=== PATIENT | male | born 1940 | race Caucasian/White ===

== ENCOUNTER → 2023-09-30 12:59 | Outpatient (REF) | payer MEDICARE, OTHER, SELFPAY | LOC: RCS 12:59 | PROVIDERS: ATTENDING PHYSICIAN Internal Medicine Cardiovascular Disease; FAMILY PHYSICIAN Family Medicine | DX: I48.19 Other persistent atrial fibrillation (principal) | CPT/HCPCS: 93306 ==

== ENCOUNTER 2023-10-08 06:27 | Day surgery (SDC) | payer MEDICARE, OTHER, SELFPAY ==
[2023-10-08] VITALS (7 sets, daily range): BP systolic 139–154; BP diastolic 65–94; BMI 26.8
[2023-10-08 07:15] LABS: Hematocrit 46.4 % (39.0-52.0); Hemoglobin 16.6 g/dL (13.0-18.0); Mean Corp Hgb Conc. 35.8 g/dL (33.0-37.0); Mean Corpuscular Hgb 31.8 pg (27.0-31.0); Mean Corpuscular Volume 88.9 fL (80.0-94.0); Mean Platelet Volume 9.5 fL (7.4-10.4); Platelet Count 158 10^3/uL (130-400); Red Blood Cell Count 5.22 10^6/uL (4.70-6.10); Red Cell Dist. Width 12.9 % (11.5-14.5); White Blood Cell Count 6.2 10^3/uL (4.8-10.8)
[2023-10-08] MEDS: LOW STRENGTH ASPIRIN 81 MG PO ×5 (07:33→07:34)
[2023-10-08 08:17] LABS: Blood Urea Nitrogen 14 mg/dl (9-20); Calcium 9.1 mg/dl (8.4-10.2); Carbon Dioxide 25 mmol/L (22-30); Chloride 101 mmol/L (98-107); Estimated Creatinine Clearance 65 ml/min; Glucose 100 mg/dl (70-99); Potassium 4.3 mmol/L (3.5-5.1); Sodium 136 mmol/L (135-145); eGFR > 60.00
--- NOTE | 2023-10-08 09:12 | ITS.CL.CATH ---
[facility]ider - Catheterization
Cardiac Catheterization
Procedure Report:
LEFT HEART CATHETERIZATION
Date of Procedure: October 08, 2023
Referring: Dr. Aaron Jacob
PROCEDURES:
1. Left heart catheterization with coronary and single-plane left ventriculography
INDICATION: This is a physically active 83-year-old gentleman who has a past medical history notable for atrial fibrillation and progressive aortic stenosis. He has a history of left carotid stenosis treated with carotid endarterectomy in June
2020. He walks the [employer] walking path and on occasion notices some vague chest heaviness and shortness of breath when climbing up the steepest hill in the park but he continues to go to the gym regularly and states that his symptoms have
been stable for quite some time. His most recent echocardiogram was notable for new LV dysfunction with mild global hypokinesis and estimated ejection fraction of 45%. There is mild mitral regurgitation. The aortic valve is thickened, calcified,
and leaflet mobility is restricted with a mean aortic valve gradient for 30 mmHg. Given symptoms and new LV dysfunction he is now referred for coronary angiography.
ACCESS: Right radial artery, 6 Gabonese sheath
HEMODYNAMICS : (mmHg)
AO (s/d) : 108/68
LV (s/d) : 146/10
LVEDP : 16
AORTIC VALVE:
Mean Gradient: 35 mmHg
CORONARY FINDINGS
DOMINANCE: Left
LEFT MAIN: Normal
LEFT ANTERIOR DESCENDING: The LAD arises normally from the left main and runs in the anterior interventricular groove. The LAD is moderately calcified with luminal stenosis of 40-50% noted in the mid LAD and 60% in the distal LAD as well as 80% as
the LAD wraps around the apex.
CIRCUMFLEX: Large caliber dominant vessel. OM1 small-medium. OM2 moderate caliber vessel. The circumflex continues in the AV groove supplying the PDA. The distal circumflex has a 70% stenosis extending to the proximal PDA which has a 70% mid
stenosis.
RIGHT CORONARY ARTERY: Medium caliber nondominant vessel that supplies a small posterolateral branch
VENTRICULOGRAPHY: Left ventriculography is performed in an ELIZALDE projection. The digital single-plane left ventricular ejection fraction is estimated at 40-45% with moderate anterolateral hypokinesis and posterobasal hypokinesis.
RADIATION SUMMARY: Fluoro Time (min): 3.7, Dose (mGy): 434.1, DAP (Gy.cm2) : 39.3
Closure Device: TR band
CONCLUSIONS
1. Severe symptomatic aortic stenosis with mean AV gradient of 35 mmHg
2. Moderate coronary disease as described above
RECOMMENDATIONS
1. Will discuss at upcoming Valve Clinic meeting
Copy to: Dr. Aaron Jacob
[2023-10-08] MEDS: NSS 1000 IV (10:00)
--- NOTE | 2023-10-08 10:27 | CONSULT.STRU ---
Addendum entered and electronically signed by RUBIN Justin 10/29/23 09:28:
Patient reviewed by the Heart Team at the shared decision making meeting. TAVR is felt to be the appropriate treatment for his severe, symptomatic aortic stenosis utilizing a 29mm S3 via right transfemoral access. Will call to schedule patient for
his procedure.
Original Note:
Consultation
-
Date/Time Consultation Requested: 10/08/2023 0900
Date/Time Consultation Performed: 10/08/2023 1030
Requesting Provider: Yared Winkler MD
Performing Provider: RUBIN Khan
Reason for Consultation: /TAVR
Patient History
Physicians
Family Physician: Mack Cox MD
Outpatient Services Executive: Aaron Jacob MD
Primary Services Executive: Melyssa Gallardo
History of Present Illness
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 Patient states he still enjoys walking [facility] in [place] several times per week and he is an avid
golfer. Recently, he states he is more fatigued, has some increased COLLAZO, and exertional CP. He also c/o intermittent dizziness over the last several weeks. His echocardiogram from 09/30/2023 is notable for an EF of 45%, AV 50/30, SHADI 0.5, DI 0.1, mild
AI, mild MR, mild TR, PAP 30-35mmHg. Discussed the pathophysiology of aortic stenosis and the treatment options including SAVR and TAVR. Explained the evaluation process comprising of CT scan, CT surgical consult, dental clearance, and a heart team
discussion. TAVR booklet, prescriptions, appointments, and contact information given to patient. Allowed for and answered questions at bedside.
Past Medical History
Past Medical History: Asthma, Atrial Fib (persistent afib), GERD, HTN, Hypercholesterolemia, Valvular Disease (aortic stenosis) and Other
diverticulosis, spondylolysis of cervical region, IBD, pancreatitis, AAA, malignant melanoma, carotid stenosis, RBBB, bradycardia, Tinnitis
Past Surgical History
Past Surgical History: Other ((L) carotid endarterectomy, inguinal hernia repair, cataracts)
Dental History
UTD with dental care with [facility]. Will fax dental clearance form.
Family History
Mother: Cause of (multiple myeloma)
Father: Cause of (CAD)
Social History
Alcohol: Occasional
Drug: None
Tobacco: Former Smoker
Personal:
Living: With Spouse
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
Allergies
Allergy/AdvReac Type Severity Reaction Status Date / Time
atorvastatin Allergy Unknown caused Verified 10/08/23 06:37
pancreatitis
egg [Egg] Allergy Unknown Hives Verified 10/08/23 06:37
milk [Milk] Allergy Unknown Hives Verified 10/08/23 06:37
chocolate Allergy Unknown Hives Uncoded 10/08/23 06:37
grass,pollen Allergy Unknown sneezing Uncoded 10/08/23 06:37
Wheat Allergy Unknown Hives Uncoded 10/08/23 06:37
Home Medications
Medication Instructions Recorded Confirmed Type
multivitamin with folic acid 400 1 tab PO DAILY Supplement 06/30/09 10/08/23 History
mcg tablet (Tab-A-Kira)
omeprazole 20 mg capsule,delayed 20 mg PO DAILY Gastrointestinal 12/24/15 10/08/23 History
release issue
metoprolol succinate 25 mg 50 mg PO QPM Blood pressure 07/15/21 10/08/23 History
tablet,extended release 24 hr
rivaroxaban 20 mg tablet (Xarelto) 10 mg PO QPM Blood clot 07/15/21 10/08/23 History
prevention/tx
B-complex with vitamin C 1 cap PO DAILY 10/08/23 10/08/23 History
aspirin 81 mg capsule 81 mg PO DAILY 10/08/23 10/08/23 History
cholecalciferol (vitamin D3) 50 50 mcg PO DAILY 10/08/23 10/08/23 History
mcg (2,000 unit) capsule (Vitamin
D3)
coQ10 (ubiquinol) 100 mg capsule 50 mg PO DAILY 10/08/23 10/08/23 History
ezetimibe 10 mg tablet 10 mg PO DAILY 10/08/23 10/08/23 History
red yeast rice 600 mg tablet 1,200 mg PO DAILY 10/08/23 10/08/23 History
STS%
STS %: 3.48
Review of Systems
-
History Source: Patient
General: Reports No Symptoms
HEENT: Reports No Symptoms
Respiratory: Reports COLLAZO
Cardiac: Reports Chest Pain (with exertion)
Abdomen/GI: Reports No Symptoms
: Reports No Symptoms
Skin: Reports No Symptoms
Neurological: Reports Dizzy (hx of tinnitus)
Vascular: Reports No Symptoms
Physical Exam
Vital Signs
Temp 98 F 10/08/23 07:13
Temp route: Oral 10/08/23 07:13
Pulse 98 10/08/23 09:19
Resp Rate 14 10/08/23 09:19
Blood pressure 144/90 10/08/23 09:19
Blood pressure extremity used: Left upper arm 10/08/23 09:19
Position: Sitting 10/08/23 09:19
SaO2 98 10/08/23 09:19
Oxygen Mode of Delivery Room air 10/08/23 07:13
Can the patient verbally communicate their pain? Yes 10/08/23 09:19
Actual Weight 87.09 kg 10/08/23 07:13
Body Mass Index (BMI) 26.8 10/08/23 07:13
Labs
10/08/23 07:05
10/08/23 07:31
Diagnostic Studies
CUS 03/02/2023:
IMPRESSION:
1. Right carotid: Calcified plaque carotid bulb, proximal internal and external carotid arteries. Velocity profile consistent with less than 50% stenosis.
2. Left carotid: Widely patent left carotid endarterectomy site with no recurrent or residual stenosis. Chronic left external carotid artery proximal occlusion unchanged.
3. Antegrade flow bilateral vertebral arteries.
Echocardiogram 09/30/2023:
CONCLUSIONS
�Mildly reduced left ventricular systolic function.
�Left ventricular ejection fraction is 45%.
�Global hypokinesis.
�Mild concentric left ventricular hypertrophy.
�Indexed LA volume is moderately abnormal (42-48 mL/m2).
�Moderately dilated right atrium.
�Mild mitral regurgitation.
�Severe aortic stenosis.
�Peak/mean gradients are 50/30mmHg.
�The valve area by continuity equation is 0.5cm, using a LVOT of 2.1cm.
�Dimensionless index is 0.1.
�Tricuspid valve opens normally.
�Estimated pulmonary artery pressure of 30-35 mmHg.
�Since 2020 echo is now severe and EF% is slightly diminished.
Exam
General: Well Developed
HEENT: Normocephalic and Moist Mucous Membranes
Respiratory: Clear
Cardiac: Murmur (II/ CRISTINA)
GI: Non Tender
Rectal: Deferred by Provider
Skin: Warm and Dry
Neuro: Awake, Alert, Oriented and AO x 3
Psych: Calm
Assessment / Plan
-
Aortic Stenosis
Continue TAVR evaluation
Trend creatinine after contrast
TAVR CT scan ()
CT surgical consult (MPT 10/19)
Frailty testing and KCCQ 12 at consult
Will hold Xarelto for TAVR
Dental clearance (will fax form)
Heart team discussion.
Data Reviewed
-
Clothespin Machine Operator: Discussed with Physician (non-critical CAD)
Echo: Report Reviewed by me
Ultrasound: Report Reviewed by me (CUS)
Labs: Labs Reviewed by me
Old Records: Reviewed (Dr. Jacob's office visit)
Total Time Spent with Patient (in minutes): 45
--- NOTE | 2023-10-08 12:29 | SUR.OPER ---
Pt for tavr f/u. Stephanie Bernardo spent time reviewing his questions.Pt recovered well with any chest pain. Rt radial site soft not bleeding. Radial site no bleeding, IV d/osito intact, Understands all f/u care
== END 2023-10-08 12:32 | disposition home or self-care (01) ==
LOC: CATH 06:27
PROVIDERS: Internal Medicine Interventional Cardiology; ATTENDING PHYSICIAN Internal Medicine Cardiovascular Disease; FAMILY PHYSICIAN Family Medicine
DX: I25.10 Atherosclerotic heart disease of native coronary artery without angina pectoris (principal); I48.19 Other persistent atrial fibrillation; I08.0 Rheumatic disorders of both mitral and aortic valves; R07.89 Other chest pain; R06.02 Shortness of breath; I10 Essential (primary) hypertension; E78.00 Pure hypercholesterolemia, unspecified; J45.909 Unspecified asthma, uncomplicated; K21.9 Gastro-esophageal reflux disease without esophagitis; K58.9 Irritable bowel syndrome, unspecified; Z85.820 Personal history of malignant melanoma of skin; Z87.891 Personal history of nicotine dependence; Z82.49 Family history of ischemic heart disease and other diseases of the circulatory system; Z79.82 Long term (current) use of aspirin
CPT/HCPCS: 80048; 85027; 93458; C1894; Q9967

== ENCOUNTER → 2023-10-12 09:06 | Outpatient (REF) | payer MEDICARE, OTHER, SELFPAY ==
[2023-10-12 10:34] LABS: Blood Urea Nitrogen 16 mg/dl (9-20); Calcium 9.8 mg/dl (8.4-10.2); Carbon Dioxide 28 mmol/L (22-30); Chloride 100 mmol/L (98-107); Glucose 102 mg/dl (70-99); Potassium 4.9 mmol/L (3.5-5.1); Sodium 138 mmol/L (135-145); eGFR > 60.00
== END ==
LOC: REG 09:06
PROVIDERS: ATTENDING PHYSICIAN Nurse Practitioner Acute Care; FAMILY PHYSICIAN Family Medicine; REFERRING PHYSICIAN Internal Medicine Cardiovascular Disease
DX: I35.0 Nonrheumatic aortic (valve) stenosis (principal)
CPT/HCPCS: 36415; 80048

== ENCOUNTER → 2023-10-21 09:40 | Outpatient (REF) | payer MEDICARE, OTHER, SELFPAY | LOC: RAD 09:40 | PROVIDERS: ATTENDING PHYSICIAN Nurse Practitioner Acute Care; FAMILY PHYSICIAN Family Medicine | DX: I35.0 Nonrheumatic aortic (valve) stenosis (principal) | CPT/HCPCS: 74174; 75572; Q9967 ==

== ENCOUNTER 2023-11-18 07:28 | Inpatient (IN) | payer MEDICARE, OTHER, SELFPAY ==
--- NOTE | 2023-11-10 09:50 | HPS.HSE ---
Family Physician
-
Family Physician: Mack Cox
Chief Complaint
-
Fatigue, COLLAZO, intermittent dizziness
History of Present Illness
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 Patient states he still enjoys walking [place] in [place] several times per week and he is an avid
golfer. Recently, he states he is more fatigued and has some increased COLLAZO. He also c/o intermittent dizziness over the last several weeks. His echocardiogram from 09/30/2023 is notable for an EF of 45%, AV 50/30, SHADI 0.5, DI 0.1, mild AI, mild MR,
mild TR, PAP 30-35mmHg. He has been evaluated by the structural heart team and recommended for TAVR. TF TAVR scheduled for 11/18/2023 utilizing a 29mm S3 via right transfemoral access.
Patient assessed in preadmission testing and medication list confirmed. Last dose of Xarelto will be Wednesday (11/14) and will continue aspirin including the morning of TAVR (11/17). Xarelto will be resumed post TAVR. Mr. Olivo will arrive to the
[facility] atrium at 0530. Reviewed the risks of the procedure as discussed with Dr. Olson in consult including stroke, vascular injury, and ppm. Informed patient he will get a phone call from the heart team on Wednesday (11/16) before his TAVR. Allowed
for and answered questions.
Medical History
Past Medical History
Past Medical History: Reports Arrhythmia (PAF--Xarelto), Asthma, GERD, HTN, Hypercholesterolemia, Valvular Disease (aortic stenosis) and Other (diverticulosis, IBS, pancreatitis, AAA, carotid stenosis, spondylolysis of cervical region, statin
intolerance, malignant melanoma, former smoker, RBBB, mortons metatarsaligia)
Past Surgical History: Reports Orthopedic (Bone spur and hammer toe) and Other (inguinal hernia repair, CEA (07/13))
Social History
Tobacco: Former Smoker
Alcohol: Occasional
Drug: None
Personal:
Living: With Family
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
Family History
Family History: CAD (father) and Cancer (mother-multiple myeloma)
Allergies / Home Medications
Allergies reflects when Allergies were last updated in [facility].
Hfjzkgp-efh-brf Reductase Inhibitors: pancreatitis (06/16/2013) - Allergy
Home Medications with original date entered in [facility]
Aspirin 81(Aspirin) 81 MG Tablet Chewable 1 tablet Orally Once a day
Ezetimibe 10 MG Tablet 1 tablet Orally Once a day
Metoprolol Succinate ER 25 MG Tablet Extended Release 24 Hour 1 tablet Orally Once a day
Multivitamin(Multiple Vitamin) - Tablet 1 tablet Orally Once a day
Omeprazole 20 MG Capsule 1 capsule 30 minutes before morning meal Orally Once a day
Red Yeast Rice 600 MG Capsule as directed Orally Twice a Day
Vitamin B12
Vitamin D
Xarelto(Rivaroxaban) 20 MG Tablet 1 tablet with food Orally Once a day
Allergy/Medication List:
Kglgqad-cjp-ogt Reductase Inhibitors: pancreatitis (06/16/2013)
Review of Systems
-
History Source: Patient
Constitutional: Reports Fatigue
EENT: Reports Runny Nose
Respiratory: Reports Cough and Trouble Breathing (COLLAZO)
Cardiac: Reports No Symptoms
Abdomen/GI: Reports No Symptoms
: Reports No Symptoms
Skin: Reports No Symptoms
Neurological: Reports Dizzy (intermittent positional dizziness)
Psych: Reports No Symptoms
Physical Exam
Physical Exam
General: Well Developed and Well Nourished
HEENT: Moist mucous membranes
Respiratory: Clear
Cardiac: Irregular Rhythm and Murmur (II/ CRISTINA)
Breast: Deferred by me
GI: Soft and Non Tender
Rectal: Deferred by Provider
Genito-urinary: Deferred by me
Musculoskeletal: No Edema
Skin: Warm and Dry
Neuro: Awake, Alert, Oriented and AO x 3
Psych: Calm
Data Reviewed
-
Diagnostic Radiology: Report Reviewed by me
CT Scan: Report Reviewed by me and Discussed with Physician (TAVR CT scan reviewed with the structural heart team)
Medical Tests (Nuc Med, Echo, EKG etc): Report Reviewed by me and Discussed with Physician (Reviewed echocardiogram and cardiac catheterization with the structural heart team)
Lab Data: Labs Reviewed by me
Old Records: Reviewed (Office note, echo, cath, CT scan)
Impression/Plan
-
IMPRESSION/PLAN:
Aortic Stenosis--TF TAVR planned for 11/18/2023 utilizing a 29 mm S3 via right transfemoral access.
Last dose Xarelto Wednesday (11/14) Continue aspirin. Resume Xarelto s/p TAVR.
POD#1/#30 echocardiogram
cardiac rehab consult.
RBBB--EP notified.
Labs
-
Labs:
WBC 7.7 10^3/uL (4.8-10.8) 11/11/23 08:40
RBC 5.07 10^6/uL (4.70-6.10) 11/11/23 08:40
Hgb 15.9 g/dL (13.0-18.0) 11/11/23 08:40
Hct 46.6 % (39.0-52.0) 11/11/23 08:40
Plt Count 171 10^3/uL (130-400) 11/11/23 08:40
Sodium 135 mmol/L (135-145) 11/11/23 08:40
Potassium 4.5 mmol/L (3.5-5.1) 11/11/23 08:40
Chloride 102 mmol/L (98-107) 11/11/23 08:40
Carbon Dioxide 25 mmol/L (22-30) 11/11/23 08:40
BUN 16 mg/dl (9-20) 11/11/23 08:40
Creatinine 0.9 mg/dL (0.7-1.3) 11/11/23 08:40
eGFR > 60.00 11/11/23 08:40
Glucose 90 mg/dl (70-99) 11/11/23 08:40
Calcium 9.4 mg/dl (8.4-10.2) 11/11/23 08:40
Opd-O-Pmkvsowvyfy Pept 3570 pg/ml 11/11/23 08:40
Albumin 4.8 g/dl (3.5-5.0) 11/11/23 08:40
[2023-11-11 08:28] VITALS: BMI 27.5
[2023-11-11 09:02] LABS: % Basophils 0.4 % (0-2); % Eosinophils 2.5 % (0-6); % Immature Granulocytes 0.4 % (0-0.5); % Monocytes 8.8 % (1.7-9.3); % Neutrophils 58.9 % (42.2-75.2); Absolute Eosinophils 0.2 10^3/uL (0-0.7); Absolute Lymphocytes 2.2 10^3/uL (1.2-3.4); Absolute Monocytes 0.7 10^3/uL (0.1-0.6); Absolute Neutrophils 4.6 10^3/uL (1.4-6.5); Hematocrit 46.6 % (39.0-52.0); Hemoglobin 15.9 g/dL (13.0-18.0); Mean Corp Hgb Conc. 34.1 g/dL (33.0-37.0); Mean Corpuscular Hgb 31.4 pg (27.0-31.0); Mean Corpuscular Volume 91.9 fL (80.0-94.0); Mean Platelet Volume 9.2 fL (7.4-10.4); Nucleated Red Blood Cells % 0 % (-); Platelet Count 171 10^3/uL (130-400); Red Blood Cell Count 5.07 10^6/uL (4.70-6.10); Red Cell Dist. Width 13.2 % (11.5-14.5); White Blood Cell Count 7.7 10^3/uL (4.8-10.8)
[2023-11-11 09:06] LABS: INR 1.41; PT 17.3 Sec (11.4-14.6)
[2023-11-11 09:07] LABS: APTT 37.4 Sec (23.4-35.0)
[2023-11-11 09:34] LABS: Urine Albumin Negative (Neg - Trace); Urine Bilirubin Negative (Negative); Urine Character Clear (Clear); Urine Color Yellow; Urine Glucose Negative (Negative); Urine Ketone Negative (Negative); Urine Leukocyte Negative (Negative); Urine Nitrite Negative (Negative); Urine Occult Blood Negative (Negative); Urine Urobilinogen Negative (Neg - 1+); Urine pH 6.5 (5.0-9.0)
[2023-11-11 09:36] LABS: NT-proBNP 3570 pg/ml
[2023-11-11 09:57] LABS: ALT (SGPT) 28 U/L (0-50); AST (SGOT) 34 U/L (17-59); Albumin 4.8 g/dl (3.5-5.0); Alkaline Phosphatase 58 U/L (38-126); Blood Urea Nitrogen 16 mg/dl (9-20); Calcium 9.4 mg/dl (8.4-10.2); Carbon Dioxide 25 mmol/L (22-30); Chloride 102 mmol/L (98-107); Direct Bilirubin 0.3 mg/dl (0.0-0.4); Estimated Creatinine Clearance 63 ml/min; Glucose 90 mg/dl (70-99); Potassium 4.5 mmol/L (3.5-5.1); Sodium 135 mmol/L (135-145); Total Bilirubin 1.2 mg/dl (0.2-1.3); Total Protein 7.8 g/dl (6.3-8.2); eGFR > 60.00
--- NOTE | 2023-11-11 10:15 | CM ---
Met with Mr. Olivo in [facility]. He states prior to admission he resides with his spouse in a two story home without any steps to enter. He states he has a full flight of steps to get to bedroom/full bathroom. He state he has a powder room on the
first floor. He state prior to admission he was independent with ambulation and adls. He states he does not have any DME in the home. He states he has a prescription plan and uses [facility]. He states his spouse will be home to assist in his
care if needed. The discharge plan is to return home with his spouse and a home visit by the Cardiothoracic Transitional Care Nurse when medically stable.
We reviewed pre-op and post-op routines. We reviewed the shower instructions. He has the soap, written instructions and the TAVR Educational Booklet. We also reviewed restrictions, driving and lifting restrictions. We discussed a home visit by
the Cardiothoracic Transitional Care Nurse. He is agreeable to a home visit. The plan is for TAVR on October.
[2023-11-11 11:30] LABS: Glycohemoglobin (HgbA1c) 6.3 % (4.0-5.6)
[2023-11-18] VITALS (28 sets, daily range): BP systolic 89–134; BP diastolic 54–103; BMI 27.4
--- NOTE | 2023-11-18 08:29 | CM ---
Reviewed chart. Mr. Olvio is in the operating room today. Prior to admission he resides with his spouse in a two story home without any steps to enter. He has a full flight of steps to get to bedroom/bathroom. He has a powder room on the first
floor. Prior to admission he was independent with ambualtion and adls. He does not have any DME in the home. He has a prescription plan and uses the [facility]. His spouse will be home to assist in his care if needed. Medical work-up in
progress. The discharge plan is to return home with his spouse and a home visit by the Cardiothoracic Transitional Care Nurse when medically stable.
--- NOTE | 2023-11-18 12:10 | W.CVOR.SURPR ---
CVOR Surgeon Immed Pre Op
-
I have examined this patient prior to performance of the scheduled procedure.
The patient's condition is unchanged from the time of the dictated/written History and
Physical and the patient is able to undergo the scheduled procedure.
TF TAVR
Full Rescue
[2023-11-18 14:51] LABS: ACT-LR - POC 371 Seconds (116-155)
--- NOTE | 2023-11-18 14:59 | W.PN.CT.SURG ---
CT Surgery Operative Note
-
OPERATIVE REPORT
Preoperative Diagnosis: Severe aortic valve stenosis, symptomatic
Postoperative Diagnosis: Same
Procedure(s) Performed: Right trans femoral TAVR with a 26mm + 1cc Franco TAVR valve
Date of Procedure: 11/18/23
Comorbidities:
1. Severe aortic stenosis, Symptomatic
2. H/o of TIA
3. Carotid Stenosis
Cardiac Surgeon: Luis Alberto Casper MD, MS
Cryptologic Technician: Yared Winkler MD
Anesthesia: Conscious Sedation and Local Analgesia
EBL: 150cc
Products: none
Implant: 26mm Franco Anna Ultra TAVR Valve, SN: [id number]
Indication(s) for Procedures: 83-year-old male with symptomatic severe aortic stenosis. CT-TAVR protocol revealed acceptable anatomy for TAVR access and implantation.
Start time: 1403hrs
Deployment time: 1432hrs
End time: 1453hrs
Radiation Dose (mGy): 338.96
DAP (cm2.Gy): 41.3337
Fluoroscopy time (minutes): 15.0
Contrast volume (ml): 94
TAVR gradient (mmHg): 3mmHg
Heparin Dose: 7000units
Protamine Dose: 40mg
Final Valve Positionin/20
LVEDP (mmHg): 20
Findings: Preoperative LVEF was 45% and was 50% following TAVR without inotropic support. Function was overall normal without regional wall motion abnormalities or dyskinesia. The aortic valve was well seated without detectable PVL and mean gradient
across the new valve was 2-3mmHg. The patient started in atrial fibrillation and remained atrial lesion post pacing run. There was successful placement of 26 mm +1 TAVR valve without acute complications.
Access:
1. Device -right common femoral artery, perclose x 2
2. Pigtail -right radial
3. Transvenous Pacer -left common femoral vein
Description of Procedure: The patient was taken to the cathead worker. Their identity and procedure to be performed were verified and they were positioned supine on the cathead worker table. Induction via conscious sedation. The patient was then prepped and
draped from chin to thigh in a sterile fashion. A preoperative time-out was performed with all members of the team present. Arterial and venous access was performed using fluoroscopy and ultrasound guidance with micropuncture and Seldinger
technique. The right radial artery was used for the pigtail site. Two perclose devices were used on the device side followed by access to the aorta with a stiff wire to facilitate E-sheath placement. Heparin was given. A stiff straight wire and
AL-1 catheter was used to cross the aortic valve. The stiff wire was exchanged for an extra stiff coiled tip wire. The valve was prepped and mounted on to the device carrier. An ACT of >250 was achieved. We verified x 3 that the valve was mounted in
the correct orientation with the skirt of the valve directed toward the tip of the device carrier. We advanced the device into the descending thoracic aorta where the valve was them mounted onto the balloon under fluoroscopy. The device was flexed
and advanced over the arch into the root and positioned across the aortic valve. Contrast fluoroscopy was used to visualize the prosthesis across the valve and to guide positioning. A pigtail catheter in the RCC as used as a guide. We aimed to have
the bottom of the device marker at the annular hinge point. The device sheath was pulled back. We performed a quick pre-deployment time out. The pacer was turned on and had capture. Blood pressure fell accordingly, angiography was done to verify the
intended final placement and the valve was deployed with 5 seconds of rapid pacing to nominal +1 cc volume. The balloon was deflated and the pacer was turned off. We had recovery of vitals. The device carrier was unflexed and positioned back in the
descending thoracic aorta. A transthoracic echocardiogram was performed. The device was removed from the E-Sheath maintaining wire access followed by removal of the E-sheath as we cinched down the perclose devices. There was acceptable hemostasis.
The pigtail was positioned into the descending/abdominal and completion aortogram with runoff run-off angiography was performed. There was no stenosis or dissection of bilateral iliofemoral systems. There was acceptable hemostasis of bilateral
groins and manual pressure was held following wire removal. Low dose protamine was administered after checking another ACT.
All instrument, sponge, and needle counts were confirmed to be correct x 2 at the end of the operation. The patient was transferred to the cardiac intensive care unit in stable condition.
I, Dr. Luis Alberto Casper, was present, scrubbed for, and performed all critical elements of this procedure.
Luis Alberto Csaper MD
Cardiothoracic Surgeon
[facility]
This operative dictation was created using the [employer] dictation system. Please excuse any grammatical, typographical, or 'sound alike' errors
--- NOTE | 2023-11-18 16:12 | ITS.CL.TAVR ---
Alteration Manager - TAVR Report
TAVR PRocedure
Procedure Report:
TRANSCATHETER AORTIC VALVE REPLACEMENT
Date of Procedure: November 18, 2023
Referring: Dr. Aaron Jacob
Operators: Dr. Yared Winkler and Dr. Luis Alberto Casper
PROCEDURE PERFORMED:
1. Successful placement of 26 mm Franco Anna S3 aortic valve via right common femoral approach.
PREPROCEDURE NYHA CLASS: 3
DESCRIPTION OF PROCEDURE: The patient was referred for assessment of severe symptomatic aortic stenosis and following a comprehensive evaluation it was felt that transcatheter aortic valve replacement (TAVR) would be the most appropriate treatment.
Informed consent was obtained prior to the procedure. A 'time-out' was called and the procedural plan was verbally confirmed by anesthesia, surgery, perfusion, and metallurgical lab technician staff.
Arterial was obtained in the right radial artery using ultrasound guidance and micropuncture technique. A 6 Fr sheath was inserted. Ultrasound guidance was then utilized to gain access into the left common femoral vein and a 6 Fr sheath was
inserted. Ultrasound guidance was utilized to gain access in the right common femoral artery. Angiography through the micropuncture sheath revealed appropriate positioning of the arteriotomy for preclosure with 2 Perclose devices. A 0.035 inch
J-wire was then reinserted through the micropuncture sheath and a 6 Fr sheath was then inserted.
A transvenous pacemaker wire was then advanced from the left common femoral vein to the right ventricular apex where excellent pacing thresholds were obtained.
An angled pigtail catheter was then advanced through the left radial artery and positioned in the proximal ascending thoracic aorta / right coronary cusp. Angiography was performed to define a coplanar angle facilitating positioning and delivery of
the TAVR device. ELIZALDE 2/CLINICAL MICROBIOLOGIST 10 appear to be a reasonable coplanar angle.
Preclosure of the right femoral arteriotomy was then performed using 2 Perclose devices and was followed by placement of an 8 Fr arterial sheath.
An AL-1 catheter was then advanced to the proximal descending thoracic aorta over 0.035' J-tipped guidewire. An Amplatz Extra-Stiff wire was then advanced through the AL-1 catheter to the proximal descending thoracic aorta. The AL-1 catheter was
removed and the supportive wire was utilized to facilitate delivery of the Franco eSheath and dilator. Heparin, 7000 units, was administered and the ACT was monitored throughout the procedure.
The AL-1 catheter was then readvanced through the Franco eSheath. The 0.035' stiff wire was allowed to drift across the aortic arch and the AL1 was positioned just above the aortic valve. The stenotic leaflets were probed with a Soft-tip Straight
wire. The aortic leaflets were crossed and the AL-1 catheter followed the Soft-tip Straight wire to the mid left ventricle. The wire was removed. Left ventricular end-diastolic pressures was measured at 22 mmHg.
An Amplatz Extra-Stiff wire with a generous curved tip was then advanced to the mid left ventricle. The AL-1 catheter was removed and the Amplatz wire was left in place in order to facilitate delivery of the Franco delivery system. A 26 mm
Franco ANNA S3 valve was brought to the table and the orientation of the valve on the balloon delivery system was confirmed by all operators. The ANNA S3 valve was advanced through the eSheath and into the proximal descending thoracic aorta.
The ANNA valve was centered on the delivery balloon and the entire system was retroflexed as across the aortic arch in an LENORE projection. The ANNA S3 delivery system was then advanced across the stenotic aortic leaflets. The pusher was
retracted. Angiography confirmed appropriate positioning of the valve and rapid pacing was undertaken. The 26 mm ANNA S3 valve was deployed during rapid pacing. Valve deployment was uneventful. Aortography following valve deployment suggested
no aortic insufficiency while the wire was still across the valve in the left ventricle.
The post valve deployment transthoracic echocardiogram was notable for 3 mmHg.
The Franco valve delivery system was removed. The Franco eSheath was removed and the Perclose knots were advanced to the arteriotomy site with acceptable hemostasis. Angiography after Perclosure demonstrated no significant bleeding or pinch at
the arteriotomy site.
The right radial artery was closed with a TR band. The temporary pacemaker was removed and the left common femoral venous sheath was removed and manual pressure applied.
Protamine was administered to reverse the intravenous anticoagulant.
Fluoro Time: 15.0 min, Dose: 339 mGy, DAP : 41.3 Gy.cm2
CONCLUSIONS:
1. Severe symptomatic aortic stenosis. Successful deployment of a 26 mm ANNA S3 valve with a post valve deployment mean gradient of 3 mmHg
2. The right arteriotomy was closed with 2 Perclose devices and successful closure of the right radial arteriotomy with a TR band
Copy to: Dr. Aaron Jacob
--- NOTE | 2023-11-18 17:00 | PTCARENOTE ---
pt received from CCL, oriented, drowsy. MAGALLANES. Afib on the monitor, HR 80-90s. SBP 90-120s. Levophed gtt running as ordered. palpable pulses, no edema. pt on 2LNC, 97% POX. lungs clear. denies SOB. abdomen s/n, denies n/v. +BS. DTV post procedure. b/l
groins c/d/i, no s/s of bleeding or hematoma. R radial TR band in place. PIV. see worklist for VS, I&O, and assessment.
[2023-11-18] MEDS: ANCEF 10 IV ×2 (17:17)
--- NOTE | 2023-11-18 19:17 | PTCARENOTE ---
R radial TR band removed, dressing c/d/i. walking rounds completed w/ oncoming RN. pt sitting up in bed eating dinner, at bedside.
[2023-11-18] MEDS: ZETIA 10 MG PO (20:03)
[2023-11-19] VITALS (9 sets, daily range): BP systolic 110–133; BP diastolic 66–111; PULSE 113; O2SAT 94–97; BMI 27.4
--- NOTE | 2023-11-19 01:05 | PTCARENOTE ---
Addendum entered by Leena Morrison RN 11/19/23 01:25:
Right radial site dressing CDI without drainage, no S&S hematoma, radial pulse palpable, (TR band removed at change of shift).
Original Note:
Rec'd pt. at beginning of shift AAOx3, A-fib on the monitor with rates 90's-120's, other VSS (CV-PA Tsilina made aware 1800 Toprol held by previous nurse because pt. being weaned off of Levophed at the time). SBP remains stable (90's-low 100's)
off of Levophed. No complaints of chest pain/SOB or any other discomfort. Bilateral groin dressings intact (right with small amount old draining that has not grown at all), no S&S hematoma, pedal pulses palpable. Pt. ate a full dinner and has
since been able to get OOB with minimal assist to use bathroom, voided large amount clear yellow urine. Pt. currently sleeping.
[2023-11-19] MEDS: TOPROL XL 25 MG PO (03:55)
[2023-11-19 04:09] LABS: Hematocrit 41.6 % (39.0-52.0); Hemoglobin 14.7 g/dL (13.0-18.0); Mean Corp Hgb Conc. 35.3 g/dL (33.0-37.0); Mean Corpuscular Hgb 31.5 pg (27.0-31.0); Mean Corpuscular Volume 89.3 fL (80.0-94.0); Mean Platelet Volume 9.5 fL (7.4-10.4); Platelet Count 145 10^3/uL (130-400); Red Blood Cell Count 4.66 10^6/uL (4.70-6.10); Red Cell Dist. Width 13.1 % (11.5-14.5); White Blood Cell Count 7.8 10^3/uL (4.8-10.8)
[2023-11-19 04:29] LABS: Blood Urea Nitrogen 17 mg/dl (9-20); Calcium 9.1 mg/dl (8.4-10.2); Carbon Dioxide 23 mmol/L (22-30); Chloride 99 mmol/L (98-107); Estimated Creatinine Clearance 71 ml/min; Glucose 134 mg/dl (70-99); Potassium 4.9 mmol/L (3.5-5.1); Sodium 133 mmol/L (135-145); eGFR > 60.00
--- NOTE | 2023-11-19 05:41 | W.PN.CT ---
Today's Communication / Plan
-
-pod #1
-no significant issues overnight
-in a-fib with RVR - gave 25 mg Toprol at 4 am
-no kirstin or pauses overnight
-pre-existing RBBB
-Echo today
-current meds (Xarelto, ASA, Toprol, Zetia)
-encourage IS, OOB, ambulate
-likely d/c soon
Assessment / Plan
-
- Severe symptomatic - s/p Right trans femoral TAVR with a 26mm + 1cc Franco TAVR valve on 11/18/23, pod #1
- LVEDP 20
- Preop LVEF was 45% and was 50% following TAVR without inotropic support, no wma or dyskinesia. The aortic valve was well seated without detectable PVL and mean gradient across the new valve was 2-3mmHg.
- Paroxysmal a-fib - on Xarelto and Toprol 25 qd at home
- H/o of TIA
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
- Carotid Stenosis- s/p L CEA 2020
- HTN/HLD
- AAA
- IBD
- Asthma
- Mortons neuroma
- Pre-existing RBBB
Discussed patient care with: Nursing and Care Team
Subjective
Procedure
- s/p Right trans femoral TAVR with a 26mm + 1cc Franco TAVR valve on 11/18/23
-
Date of Service: November 19, 2023
Objective Data
-
Lab Results
11/19/23 03:33
11/19/23 03:32
PT 17.3 Sec (11.4-14.6) H 11/11/23 08:40
INR 1.41 11/11/23 08:40
APTT 37.4 Sec (23.4-35.0) H 11/11/23 08:40
Vital Signs
Vital Signs
Temp Pulse Resp BP Pulse Ox
97.3 F 109 16 112/83 96
11/19/23 03:18 11/19/23 04:00 11/19/23 03:18 11/19/23 03:55 11/19/23 03:18
CT Intake/Output/Weight
11/18/23 11/18/23 11/19/23
06:59 18:59 06:59
Intake Total 11.3 / 495.1 483.8 / 495.1
Output Total 350 / 350
Balance 11.3 / 145.1 133.8 / 145.1
SaO2: 96
Physical Exam
-
General: Awake and AOx3
Cardiovascular: Irregular rate & rhythm, No Murmurs and No Rub
Respiratory: Clear
Incision: Other (groins are cdi, soft, nontender, no hematoma b/l)
Extremities: No Edema (1+ DP b/l)
Data Reviewed
-
Lab Results: Results Reviewed
Medications: Active Meds Reviewed
Chest X-Ray: Report Reviewed and Image Reviewed
ECG: Report Reviewed and Image Reviewed
--- NOTE | 2023-11-19 06:03 | PTCARENOTE ---
Pt.'s HR remains elevated (100's-140's, A-fib) 2 hours post Toprol admin (0800 dose given early for increasing tachycardia). ; pt. asymptomatic, resting quietly in bed. Kenisha Austin notified, advised to monitor for now. No complaints
pain/discomfort, femoral and radial sites intact with no changes.
[2023-11-19 07:43] LABS: ACT-LR - POC > 397 Seconds (116-155)
--- NOTE | 2023-11-19 08:26 | W.PN.ANS.POP ---
Anesthesia Post Operative
- Anesthesia Post Op Note
Vital Signs Stable-See Nursing Note: Yes
Airway Patent: Yes
Adequate Pain Control: Yes
Change in Mental Status: No
Current Postoperative Nausea & Vomiting: No
Anesthesia Complications: No
General Anesthetic Recall: No
Unplanned Admission: No
Post Op Hydration Adequate: Yes
[2023-11-19] MEDS: TOPROL XL 12.5 MG PO (08:28)
[2023-11-19] MEDS: ASPIR LOW (ENTERIC COATED) 81 MG PO (08:28)
--- NOTE | 2023-11-19 08:54 | PTCARENOTE ---
Assumed care of pt from night RN. Pt received awake and alert, Ox3. VSS, CM shows AF 100-140's, POX 9& % on RA. Additional 12.5 mg og Toprol given as per OCT this am. Bilateral groins and right radial sites CDI with good CMS throughout limbs.
Pt denies any ain or discomfort, Echo completed. For possible D/C today.
--- NOTE | 2023-11-19 10:04 | W.PN.CARDCBS ---
Today's Communication / Plan
-
RECOMMENDATIONS:
-Toprol XL 25 mg as outpatient has been ordered but the patient tells me that he cut the Toprol XL to 12.5mg on his own about 1 month ago.
Will continue 25 mg daily (I had been thinking of increasing to 25mg bid)
-Dr. Cross office notes suggest history of bradycardia. I reviewed outpatient HR from office visits and it looks like he has been in NSR with HR in 55-65 bpm
-Now in persistent atrial fibrillation, his HR are quite elevated
-Will ask our office to schedule him for a BardyDx x 1 week for atrial fibrillation. Can start monitor in a few days as he has only been on 25mg of Toprol XL today (He had cut his home dose to 12.5mg)
-Spent 50 min with patient showing images from TAVR, reviewing Dr. Cross notes, arranging outpatient monitor, and communicating via eCW notes to office and Dr. Jacob
Impression / Plan
-
Primary cardiology: Dr. Aaron Jacob
PCP: Dr. Mack Perea
IMPRESSION:
-Status post TAVR 26 mm Franco for treatment of severe aortic stenosis
-Persistent atrial fibrillation with rapid ventricular response
-Hypertension
-Right bundle branch block
-History of bradycardia
RECOMMENDATIONS:
-Toprol XL 25 mg as outpatient has been ordered but the patient tells me that he cut the Toprol XL to 12.5mg on his own about 1 month ago.
Will continue 25 mg daily (I had been thinking of increasing to 25mg bid)
-Dr. Cross office notes suggest history of bradycardia. I reviewed outpatient HR from office visits and it looks like he has been in NSR with HR in 55-65 bpm
-Now in persistent atrial fibrillation, his HR are quite elevated
-Will ask our office to schedule him for a BardyDx x 1 week for atrial fibrillation. Can start monitor in a few days as he has only been on 25mg of Toprol XL today (He had cut his home dose to 12.5mg)
-Spent 50 min with patient showing images from TAVR, reviewing Dr. Cross notes, arranging outpatient monitor, and communicating via eCW notes to office and Dr. Jacob
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
Subjective
Date of Service: November 19, 2023
He feels well and is without complaint
Objective
Labs:
11/19/23 03:33
11/19/23 03:32
Labs
Hgb 14.7 g/dL (13.0-18.0) 11/19/23 03:33
Hct 41.6 % (39.0-52.0) 11/19/23 03:33
Plt Count 145 10^3/uL (130-400) 11/19/23 03:33
PT 17.3 Sec (11.4-14.6) H 11/11/23 08:40
INR 1.41 11/11/23 08:40
APTT 37.4 Sec (23.4-35.0) H 11/11/23 08:40
Sodium 133 mmol/L (135-145) L 11/19/23 03:32
Potassium 4.9 mmol/L (3.5-5.1) 11/19/23 03:32
BUN 17 mg/dl (9-20) 11/19/23 03:32
Creatinine 0.8 mg/dL (0.7-1.3) 11/19/23 03:32
Glucose 134 mg/dl (70-99) H 11/19/23 03:32
Vital Signs and I&O:
Vital Signs
Temp Pulse Resp BP Pulse Ox
97.6 F 134 16 120/95 97
11/19/23 07:00 11/19/23 08:38 11/19/23 08:38 11/19/23 07:19 11/19/23 08:49
Vital Signs
Temp Pulse Resp BP Pulse Ox
97.6 F 134 16 120/95 97
11/19/23 07:00 11/19/23 08:38 11/19/23 08:38 11/19/23 07:19 11/19/23 08:49
Intake & Output
11/16/23 11/17/23 11/18/23 11/19/23
23:59 23:59 23:59 23:59
Intake Total 15.1 / 15.1 480 / 480
Output Total 350 / 350
Balance -334.9 / -334.9 480 / 480
Physical Exam
Physical Exam
GEN: AAO x 3. No acute distress
HEENT: NC/AT, sclera are anicteric,
NECK: Supple. Normal JVP
LUNGS: Clear to bases bilaterally. No wheezing
CV: Irregularly irregular and tachycardic with 1/6 murmur upper sternal border
EXT: No CCE
NEURO: No focal neurologic deficits
--- NOTE | 2023-11-19 10:25 | CM ---
Chart reviewed. Patient is independent of ADLS, lives with his in a 2 S[address], 0 ADOLFO, 0 DME. Plan is for the patient to return home with CT Transitional RN.
--- NOTE | 2023-11-19 11:34 | W.DCSUMMARY ---
Discharge Summary
Discharge Data
Date of Admission: 11/18/23
Date of Discharge: 11/19/23
Total time spent discharging patient (in min): 35
-
Pending Results: No
Hospital Course
Primary care physician:
Dr. Mack Cox MD.
Outpatient rig superintendent:
Dr. Aaron Jacob MD.
Inpatient consultants:
[facility]
Procedures:
1. Right transfemoral transcatheter aortic valve replacement with number 26 millimeter Franco STEPHEN 3 valve
Primary Diagnosis:
1. Severe aortic valve stenosis, symptomatic
Secondary Diagnoses:
1. Severe aortic stenosis, Symptomatic
2. History of transischemic attack
3. Carotid Stenosis status post left carotid endarterectomy in 2020
4. Paroxysmal atrial fibrillation
5. Hypertension
6. Hyperlipidemia
7. History of abdominal aortic aneurysm
8. Inflammatory bowel disease
9. Asthma
10. Spondylosis
11. Right bundle branch block
12. History of Seay's neuroma
HPI:
Patient is an extremely pleasant 83-year-old male who was seen as an outpatient in consultation by Dr. Luis Alberto Casper MD., as well as the transcatheter aortic valve replacement team. Patient was deemed an appropriate candidate to undergo
elective transcatheter aortic valve replacement. He underwent and completed his preadmission testing and preoperative workup.
Hospital course:
Patient presented to [facility] electively as an outpatient on the date described above for the procedure described above. Patient tolerated the procedure well. Procedure was performed in the [facility] using conscious sedation. Patient was
transported from the [facility] to the intravascular care unit. Bilateral groins were soft and intact. Patient was on norepinephrine at 4. EKG showed no changes. Beta-blockade was held due to bradycardia.
On postoperative day #1 EKG revealed atrial fibrillation with rapid ventricular response (101 bpm) and a right bundle branch block. Again, no significant changes from prior EKGs. Patient will continue aspirin 81 mg daily, as well as Xarelto 10 mg
every afternoon. Patient was seen by attending physician on morning rounds. Case was discussed with cardiology. Patient's dose of beta-blockade was discussed with cardiology prior to discharge. He will increase his beta-jennifer to 50 mg daily..
Postoperative day 1 echocardiogram revealed an ejection fraction of 45 to 50%.a well-seated transcatheter aortic #26 Franco STEPHEN valve, peak gradient 19 mmHg, mean gradient 11 mmHg, and no aortic insufficiency. When compared to postoperative day
0 echocardiogram no significant change was found. Patient will follow-up with [facility] in 1 week for rhythm star heart rate monitor placement. Patient was medically cleared to be discharged to home on postoperative
day #1.
Home medication changes:
Take acetaminophen 650 mg p.o. every 4 hours for fever and mild to moderate pain control
Take metoprolol XL 50 mg daily (1 full tab) for atrial fibrillation, hypertension
Discharge Plan
-
Patient Disposition: Home (Routine Discharge)
Discharge Diagnosis/Procedures: TF TAVR
Condition: Good
Diet: Low Cholesterol and 2 Gram Sodium
Activity: As tolerated
Driving Restrictions: No driving for 1 week
Bathing Restrictions: OK to Shower
Others Tests: your 30-day follow up echocardiogram is scheduled for: 12/16/2023 @ 4:00 in the [facility].
Other Services: Cardiac Rehab
Wound Care: no lotions, powders, or creams to puncture sites
Specialty Instructions: Weigh Daily- Call MD for wt gain/loss 3 lbs overnight/5 lbs in 1 week
Activity Restrictions/Additional Instructions:
Follow up with [facility] in one week for rhythm star heart monitor placement
Continue metoprolol XL 50 mg daily (1 full tab)
Referrals:
CT Transitional Care Nurse [Outside] - in one to two days
(
The Cardiothoracic Transitional Care Nurse will call you to set up a visit in 1-2 days.)
[facility]. Cardiac Rehab [Outside] - 12/24/23 1:00 pm
(Cardiac Rehab Orientation appointment is on 12/24/23 at 1:00 pm
The Cardiac Rehab gym is located on the first floor of the [facility].)
Flora Small PA-C [Specified Professional Personl] - 12/17/23 3:40 pm
Mack Cox MD [Family Provider] - in four to six weeks (Please make an appointment in four to six weeks. )
Additional Discharge Medication Instructions: F/U with [facility] in 1 week for Rhythm star monitor
Prescriptions:
New
acetaminophen 325 mg Tablet
650 mg PO Q4HPRN PRN (Reason: CRANDALL, mild pain, or fever >101F) Qty: 0 0RF
Continued
omeprazole 20 MG capsule,delayed release(DR/EC)
20 mg PO DAILY
Xarelto 20 MG tablet
10 mg PO QPM
aspirin 81 mg Capsule
81 mg PO DAILY
B-complex with vitamin C Capsule
1 cap PO DAILY
ezetimibe 10 mg Tablet
10 mg PO QPM
cholecalciferol (vitamin D3) [Vitamin D3] 50 mcg (2,000 unit) Capsule
50 mcg PO DAILY
coQ10 (ubiquinol) 100 mg Capsule
50 mg PO DAILY
ascorbic acid (vitamin C) [Vitamin C] 500 mg Tablet
500 mg PO DAILY
cetirizine [Zyrtec] 10 mg Tablet
10 mg PO DAILY PRN (Reason: seasonal allergies)
Changed
metoprolol succinate 50 mg Tablet Extended Release 24 Hr
50 mg PO QPM Qty: 0 0RF
Discharge Orders:
Discharge Patient (As Directed); Ordered 11/19/23
Ordered By: Rhonda Waite
Discharge Date and Time
Print Language: [id number]
--- NOTE | 2023-11-19 14:16 | PTCARENOTE ---
All D/C info reviewed with pt all questions answered. Pt d/c'd with .
== END 2023-11-19 12:30 | disposition home or self-care (01) | DRG 267 ==
LOC: IVU 07:28
PROVIDERS: Physician Assistant Medical; ADMITTING PHYSICIAN Thoracic Surgery (Cardiothoracic Vascular Surgery); FAMILY PHYSICIAN Family Medicine
PROC: 02RF38Z Replacement of Aortic Valve with Zooplastic Tissue, Percutaneous Approach (ICD-10-PCS; 2023-11-18)
DX: I35.0 Nonrheumatic aortic (valve) stenosis (principal); Z00.6 Encounter for examination for normal comparison and control in clinical research program; I48.0 Paroxysmal atrial fibrillation; I10 Essential (primary) hypertension; K52.9 Noninfective gastroenteritis and colitis, unspecified; J45.909 Unspecified asthma, uncomplicated; I45.10 Unspecified right bundle-branch block; Z86.73 Personal history of transient ischemic attack (TIA), and cerebral infarction without residual deficits; Z79.82 Long term (current) use of aspirin
CPT/HCPCS: 93308; 33361; 36415; 71045; 71046; 80048; 80053; 81003; 82248; 83036; 83880; 85025; 85027; 85347; 85610; 85730; 86850; 86900; 86901; 87070; 93005; 93306; 93321; 93325; C1760; C1769; C1894; Q9967

== ENCOUNTER → 2023-12-16 15:42 | Outpatient (REF) | payer MEDICARE, OTHER, SELFPAY | LOC: DHCBS MAIN 15:42 | PROVIDERS: ATTENDING PHYSICIAN Internal Medicine Cardiovascular Disease; FAMILY PHYSICIAN Family Medicine | DX: Z95.2 Presence of prosthetic heart valve (principal) | CPT/HCPCS: 93306 ==

== ENCOUNTER 2023-12-24 16:08 | Outpatient (RCR) | payer MEDICARE, OTHER, SELFPAY | END 2023-12-24 23:59 | disposition home or self-care (01) | LOC: CRHB 16:08 | PROVIDERS: ATTENDING PHYSICIAN Internal Medicine Cardiovascular Disease | DX: Z95.4 Presence of other heart-valve replacement (principal) | CPT/HCPCS: G0422 ==

== ENCOUNTER 2024-02-05 15:35 | Emergency (ER) | payer MEDICARE, OTHER, SELFPAY ==
[2024-02-05 15:42] VITALS: BP 142/95
[2024-02-05 16:02] LABS: % Basophils 0.5 % (0-2); % Eosinophils 10.3 % (0-6); % Immature Granulocytes 0.1 % (0-0.5); % Lymphocytes 31.1 % (20.5-51.1); % Monocytes 7.1 % (1.7-9.3); % Neutrophils 50.9 % (42.2-75.2); Absolute Eosinophils 0.8 10^3/uL (0-0.7); Absolute Lymphocytes 2.5 10^3/uL (1.2-3.4); Absolute Monocytes 0.6 10^3/uL (0.1-0.6); Hematocrit 41.7 % (39.0-52.0); Mean Corpuscular Volume 88.9 fL (80.0-94.0); Mean Platelet Volume 9.1 fL (7.4-10.4); Nucleated Red Blood Cells % 0 % (-); Platelet Count 140 10^3/uL (130-400); Red Blood Cell Count 4.69 10^6/uL (4.70-6.10); Red Cell Dist. Width 12.2 % (11.5-14.5); White Blood Cell Count 7.9 10^3/uL (4.8-10.8)
[2024-02-05 16:15] LABS: ALT (SGPT) 19 U/L (0-50); AST (SGOT) 32 U/L (17-59); Albumin 4.3 g/dl (3.5-5.0); Alkaline Phosphatase 53 U/L (38-126); Blood Urea Nitrogen 23 mg/dl (9-20); Calcium 9.6 mg/dl (8.4-10.2); Carbon Dioxide 26 mmol/L (22-30); Chloride 101 mmol/L (98-107); Glucose 107 mg/dl (70-99); Potassium 4.1 mmol/L (3.5-5.1); Sodium 136 mmol/L (135-145); Total Bilirubin 0.7 mg/dl (0.2-1.3); Total Protein 7.1 g/dl (6.3-8.2); eGFR > 60.00
[2024-02-05 16:27] LABS: Troponin I 0.027 ng/ml
[2024-02-05 18:05] VITALS: BP 145/96
[2024-02-05 18:07] VITALS: BP 161/110
[2024-02-05 18:09] VITALS: BP 137/107
[2024-02-05 18:12] VITALS: BP 137/107; BP 145/96; BP 161/110; PULSE 107; PULSE 83; PULSE 93
--- NOTE | 2024-02-05 18:20 | ED.GENMED ---
History of Present Illness
General
Chief Complaint: Dizziness
Source: patient
Exam Limitations: none
Time Seen by Provider: 02/05/24 18:00
Nursing documentation reviewed up to this point in time: agreed with
Travel History
Have you had any contact with someone who has COVID-19?: No
Do you have any symptoms of coronavirus? Fever > 100 degrees, chills, cough, shortness of breath, sore throat, loss of taste or smell, muscle aches, or headache?: No
History of Present Illness
History of Present Illness:
The patient is a pleasant 83-year-old man who reports that for the last 4 to 5 days, when he bends his head down and lifted back up, he notices a wave of dizziness. Patient reports that when he sits still and just walks around regularly, without
bending over, he does not experience the dizziness. He denies headache and vision changes. Patient denies weakness and numbness. He denies recent fever, nausea and vomiting.
Past History
Past History
ED Past Medical History: Arrthythmia (Paroxysmal atrial fibrillation) and HTN
ED Past Surgical History: Cardiac and Orthopedic
Social History
Tobacco: Non-smoker
Alcohol: Occasional
Drug: None
Personal:
Living: with family
Employment: Employed
Family History
Family History: Other (n/c)
Review of Systems
Review of Systems
Allergies reviewed?: Yes
All Other Systems: ROS reviewed and negative except as documented in HPI and ROS
Constitutional: Reports no symptoms
EENT: Reports no symptoms
Respiratory: Reports no symptoms
Cardiac: Reports no symptoms
ABD/GI: Reports no symptoms
: Reports no symptoms
Musculoskeletal: Reports no symptoms
Skin: Reports no symptoms
Neurological: Reports dizzy
Endocrine: Reports no symptoms
Hematologic/Lymphatic: Reports no symptoms
Psychiatric: Reports no symptoms
Phy Exam
Physical Exam
Physical Exam:
Physical Exam
General: no apparent distress, not acutely ill
Neck: supple. no meningeal signs. normal psoterior pharynx
Heart: Tachycardic, irregular
Lungs: no acute respiratory distress. clear bilaterally
Abdomen: normal bowel sounds. not tender. no CVAT
Neuro: alert and orientedx3. no focal neurological deficits. 5 out of 5 strength in all extremities. Normal finger-nose. Extraocular muscles intact. Normal gait
Skin: no rash
Psychiatric: well kept. interactive and cooperative
Extremities: no edema. no calf tenderness. negative homans. good distal pulses
Course
Orders/Labs/Results
Orders:
Orders
02/05/24 15:47
Electrocardiogram (*1) Urgent
Reason for Study: Vertigo / Dizzy
EKG- Treatment ONCE
02/05/24 15:53
CMP [Comprehensive Metabolic Panel] Urgent
Complete Blood Count/With Diff Urgent
Troponin I Urgent
02/05/24 18:01
Orthostatic VS- Treatment ONCE
02/05/24 18:27
CT Head W/o Iv Contrast Urgent
Comment:
Reason For Exam: dizziness
Abnormal Lab Results
02/05/24
15:53
RBC 4.69 L 10^6/uL
(4.70-6.10)
MCH 32.0 H pg
(27.0-31.0)
Absolute Eos (auto) 0.8 H 10^3/uL
(0-0.7)
Eosinophils % 10.3 H %
(0-6)
BUN 23 H mg/dl
(9-20)
Glucose 107 H mg/dl
(70-99)
02/05/24 15:53
02/05/24 15:53
Vital Signs
Initial and Last Documented VS:
Initial Vital Signs
Temp Pulse Resp BP Pulse Ox
98.2 F 60 16 142/95 97
02/05/24 15:42 02/05/24 15:42 02/05/24 15:42 02/05/24 15:42 02/05/24 15:42
Last Documented Vital Signs
Temp Pulse Resp BP Pulse Ox
98.2 F 85 16 137/107 98
02/05/24 15:42 02/05/24 18:30 02/05/24 18:30 02/05/24 18:09 02/05/24 18:30
MDM/Problems Addressed
Differential Diagnosis Includes:
Benign positional vertigo, CVA, dehydration,
MDM/Problems Addressed:
Patient presents with 4 to 5 days of acute dizziness when he bends his head down
Chronic conditions affecting care: HTN
Acute Exacerbation and/or Progression of Chronic Illness: HTN
*Radiology
Radiology exam reviewed: radiology read reviewed
*Pulse Oximetry
Patient hypoxic: no
*EKG
Interpreted by ED Provider?: Yes
Interpretation: abnormal
Comparison EKG: no changes
Rate: tachycardiac
Rhythm: a-fib
Harrison: normal axis
Interval: normal interval
QRS Pattern: right bundle branch block
Ischemia: non-specific ST changes
*Natural Science Manager Interpretation
Rate: tachycardiac
Interpretation: abnormal
Rhythm: a-fib
*Critical Care Note
Total Time (30-74mins, 75-104mins- exclusive of procedures): Not Applicable
Data Reviewed
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
Source: patient
Patient Management
Social determinants of health affecting care: Living situation and Strong social support
Update Note
Update Note:
Patient walks with a steady gait. He has a normal neurological exam. He reports that his symptoms of dizziness only occur when he bends his head down. History and symptoms seem very consistent with benign positional vertigo. I have also
considered stroke and have discussed this with the patient but he much rather go home than be admitted. Patient assures me he will follow-up with his primary care doctor and will call neurology. Patient told to return immediately with any vision
changes or worsening dizziness. Patient reports he is always in A-fib so this is not unusual for him. His heart rate ranged from 90s to low 100s in the ED.
ED Attending Note
-
Portions of this chart may have been created with voice recognition software.� Occasional wrong word or��sound alike� substitutions may have occurred due to the inherent limitations of voice recognition software.
Discharge Plan
Departure
Patient Disposition: Home (Routine Discharge)
Date of Disposition: 02/05/24
Time of Disposition: 19:57
Patient with high blood pressure during this ER visit?: Yes
Condition: Good
Covid-19: Not Applicable
Discharge Problem:
Dizziness
Instructions: Dizziness, BLOOD PRESSURE
Prescriptions:
No Action
omeprazole 20 MG capsule,delayed release(DR/EC)
20 mg PO DAILY
Xarelto 20 MG tablet
10 mg PO QPM
aspirin 81 mg Capsule
81 mg PO DAILY
B-complex with vitamin C Capsule
1 cap PO DAILY
ezetimibe 10 mg Tablet
10 mg PO QPM
cholecalciferol (vitamin D3) [Vitamin D3] 50 mcg (2,000 unit) Capsule
50 mcg PO DAILY
coQ10 (ubiquinol) 100 mg Capsule
50 mg PO DAILY
ascorbic acid (vitamin C) [Vitamin C] 500 mg Tablet
500 mg PO DAILY
cetirizine [Zyrtec] 10 mg Tablet
10 mg PO DAILY PRN (Reason: seasonal allergies)
acetaminophen 325 mg Tablet
650 mg PO Q4HPRN PRN (Reason: CRANDALL, mild pain, or fever >101F) Qty: 0 0RF
metoprolol succinate 50 mg Tablet Extended Release 24 Hr
50 mg PO QPM Qty: 0 0RF
Referrals:
Lashawn Green DO [Active] - (Call Wednesday to see as soon as possible)
Mack Cox MD [Family Provider] -
Activity Restrictions/Additional Instructions:
Return immediately with any worsening dizziness or any vision changes. Is important that you call both neurology as well as your primary care doctor for follow-up this week. You should also speak to your physical therapist about getting vestibular
(balance) therapy
Interventions
Interventions:
*Risk Screen - Suicide Last Done: 02/05/24 17:41
*General Assessment Last Done: 02/05/24 17:41
*Neglect/Abuse Screening Last Done: 02/05/24 17:41
ED- Fall Risk Assessment Last Done: 02/05/24 17:41
*ED COVID-19 Vaccine History Last Done: 02/05/24 15:42
*Nursing Disposition Last Done: 02/05/24 20:09
ED- Neurological Assessment Last Done: 02/05/24 17:41
ED- Cardiac Assessment Last Done: 02/05/24 17:41
Discharge Date and Time
Discharge Date/Time: 02/05/24 20:32
Print Language: [id number]
== END 2024-02-05 20:32 | disposition home or self-care (01) ==
LOC: EMR 15:35
PROVIDERS: EMERGENCY PHYSICIAN Emergency Medicine; FAMILY PHYSICIAN Family Medicine
DX: R42 Dizziness and giddiness (principal); R00.0 Tachycardia, unspecified; R09.82 Postnasal drip; I10 Essential (primary) hypertension; I48.0 Paroxysmal atrial fibrillation; I45.10 Unspecified right bundle-branch block; I35.0 Nonrheumatic aortic (valve) stenosis; M19.90 Unspecified osteoarthritis, unspecified site; Z79.82 Long term (current) use of aspirin; Z87.891 Personal history of nicotine dependence; Z85.820 Personal history of malignant melanoma of skin; Z88.8 Allergy status to other drugs, medicaments and biological substances; Z91.048 Other nonmedicinal substance allergy status
CPT/HCPCS: 99284; 70450; 80053; 84484; 85025; 93005

== ENCOUNTER → 2024-04-18 08:51 | Outpatient (REF) | payer MEDICARE, OTHER, SELFPAY | LOC: RAD 08:51 | PROVIDERS: ATTENDING PHYSICIAN Physician Assistant; FAMILY PHYSICIAN Family Medicine | DX: I65.22 Occlusion and stenosis of left carotid artery (principal) | CPT/HCPCS: 93880 ==

== ENCOUNTER → 2024-07-24 10:13 | Outpatient (REF) | payer MEDICARE, OTHER, SELFPAY | LOC: HWRAD 10:13 | PROVIDERS: ATTENDING PHYSICIAN Family Medicine | DX: M79.671 Pain in right foot (principal) | CPT/HCPCS: 73620 ==

== ENCOUNTER → 2024-09-27 07:41 | Outpatient (REF) | payer MEDICARE, OTHER, SELFPAY | LOC: RAD 07:41 | PROVIDERS: ATTENDING PHYSICIAN Student in an Organized Health Care Education/Training Program; FAMILY PHYSICIAN Family Medicine | DX: M25.571 Pain in right ankle and joints of right foot (principal) | CPT/HCPCS: 76882 ==

== ENCOUNTER → 2025-03-23 15:15 | Outpatient (REF) | payer MEDICARE, OTHER, SELFPAY | LOC: RAD 15:15 | PROVIDERS: ATTENDING PHYSICIAN Internal Medicine; FAMILY PHYSICIAN Family Medicine | DX: J45.21 Mild intermittent asthma with (acute) exacerbation (principal) | CPT/HCPCS: 71046 ==

== ENCOUNTER → 2025-04-27 08:50 | Outpatient (REF) | payer MEDICARE, OTHER, SELFPAY | LOC: RAD 08:50 | PROVIDERS: ATTENDING PHYSICIAN Surgery Vascular Surgery; FAMILY PHYSICIAN Family Medicine | DX: I65.22 Occlusion and stenosis of left carotid artery (principal) | CPT/HCPCS: 93880 ==

== ENCOUNTER → 2025-05-01 10:15 | Outpatient (REF) | payer MEDICARE, OTHER, SELFPAY ==
[2025-05-01 16:17] LABS: Blood Urea Nitrogen 14 mg/dl (9-20); Calcium 9.4 mg/dl (8.4-10.2); Carbon Dioxide 26 mmol/L (22-30); Chloride 99 mmol/L (98-107); Glucose 96 mg/dl (70-99); Potassium 5.1 mmol/L (3.5-5.1); Sodium 133 mmol/L (135-145); eGFR > 60.00
== END ==
LOC: REG 10:15
PROVIDERS: ATTENDING PHYSICIAN Registered Nurse; FAMILY PHYSICIAN Family Medicine
DX: I65.22 Occlusion and stenosis of left carotid artery (principal)
CPT/HCPCS: 36415; 80048

== ENCOUNTER → 2025-05-04 07:32 | Outpatient (REF) | payer MEDICARE, OTHER, SELFPAY | LOC: RAD 07:32 | PROVIDERS: ATTENDING PHYSICIAN Registered Nurse; FAMILY PHYSICIAN Family Medicine | DX: I65.22 Occlusion and stenosis of left carotid artery (principal) | CPT/HCPCS: 70496; 70498; Q9967 ==

== ENCOUNTER → 2025-07-12 09:17 | Outpatient (REF) | payer MEDICARE, OTHER, SELFPAY | LOC: RCS 09:17 | PROVIDERS: ATTENDING PHYSICIAN Internal Medicine Cardiovascular Disease; FAMILY PHYSICIAN Family Medicine | DX: I35.0 Nonrheumatic aortic (valve) stenosis (principal) | CPT/HCPCS: 93306 ==